=== PATIENT | male | born 1995 | race Caucasian/White ===

== ENCOUNTER 2019-03-20 08:41 | Emergency (ER) | payer SELFPAY ==
--- NOTE | 2019-03-20 09:02 | EDM.PDOC ---
ED HPI GENERAL MEDICAL PROBLEM - General Chief Complaint: Genitourinary Problem Stated Complaint: PAIN IN GROIN Time Seen by Provider: 03/20/19 09:02 Source of Information: Reports: Patient, RN, RN Notes Reviewed History Limitations: Reports: No Limitations - History of Present Illness INITIAL COMMENTS - FREE TEXT/NARRATIVE: Pt to ER with c/o right groin pain, right testicular pain. Patient states he woke up at 0100 with pain in the right groin and right testicle. Patient denies any urinary sx, fever or chills, blood in the urine. Denies hx of kidney stones or hernia. States last sexual intercourse was over 1 year ago, pt has no concerns for STI's. Patient denies any penile drainage. Admits to nausea. 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 Denies trauma to the area. Patient states he does still have his appendix. Pt c/o 1/10 at rest, and 8/10 with movement. Onset: Today, Sudden Right Groin Pain Score (Numeric/FACES): 7 - Related Data Allergies Allergy/AdvReac Type Severity Reaction Status Date / Time No Known Allergies Allergy Verified 03/20/19 08:48 Home Meds: Home Meds . [No Known Home Meds] 03/20/19 [History] Past Medical History - Past Health History Medical/Surgical History: Denies Medical/Surgical History HEENT History: Reports: None Cardiovascular History: Reports: None Respiratory History: Reports: None Gastrointestinal History: Reports: None Genitourinary History: Reports: None Musculoskeletal History: Reports: Other (See Below) Other Musculoskeletal History: right ankle and foot fracture Neurological History: Reports: None Psychiatric History: Reports: None Endocrine/Metabolic History: Reports: None Hematologic History: Reports: None Immunologic History: Reports: None Oncologic (Cancer) History: Reports: None Dermatologic History: Reports: None - Infectious Disease History Infectious Disease History: Reports: None - Past Surgical History Head Surgeries/Procedures: Reports: None Musculoskeletal Surgical History: Reports: Other (See Below) Other Musculoskeletal Surgeries/Procedures:: right ankle and foot surgery Social & Family History - Family History Family Medical History: Noncontributory - Tobacco Use Smoking Status *Q: Never Smoker Second Hand Smoke Exposure: No - Caffeine Use Caffeine Use: Reports: None - Recreational Drug Use Recreational Drug Use: No ED ROS GENERAL - Review of Systems Review Of Systems: ROS reveals no pertinent complaints other than HPI. ED EXAM, RENAL/ - Physical Exam Exam: See Below Exam Limited By: No Limitations General Appearance: Alert, WD/WN, Mild Distress Eye Exam: Bilateral Eye: EOMI, Normal Inspection Ears: Normal External Exam, Hearing Grossly Normal Nose: Normal Inspection Throat/Mouth: Normal Inspection, Normal Voice, No Airway Compromise Head: Atraumatic, Normocephalic Neck: Normal Inspection, Supple, Non-Tender, Full Range of Motion Respiratory/Chest: No Respiratory Distress, Lungs Clear, Normal Breath Sounds, No Accessory Muscle Use, Chest Non-Tender Cardiovascular: Normal Peripheral Pulses, Regular Rate, Rhythm, No Edema, No Gallop, No JVD, No Murmur, No Rub GI/Abdominal: Normal Bowel Sounds, Soft, Tender (RLQ) (Male) Exam: Cremasteric Reflex (decreased on right), Scrotal Swelling ( right side), Scrotum Tenderness (R), Testicular Tenderness (R). No: Hernia, Penile Lesions, Rash, Urethral Discharge Rectal (Males) Exam: Deferred Back Exam: Normal Inspection, Full Range of Motion, NT Extremities: Normal Inspection, Normal Range of Motion, Non-Tender, Normal Capillary Refill, No Pedal Edema Neurological: Alert, Oriented, CN II-XII Intact, Normal Cognition, Normal Gait, Normal Reflexes, No Motor/Sensory Deficits Psychiatric: Normal Affect, Normal Mood Skin Exam: Warm, Dry, Intact, Normal Color, No Rash Lymphatic: No Adenopathy Course - Vital Signs Last Recorded V/S: Last Vital Signs Temp 97.5 F 03/20/19 08:49 Pulse 88 03/20/19 08:49 Resp 18 03/20/19 08:49 BP 126/75 03/20/19 08:49 Pulse Ox 98 03/20/19 08:49 - Orders/Labs/Meds Orders: Active Orders 24 hr Category Date Time Status CHLAMYDIA AND GONORRHEA BY TMA Stat Lab 03/20/19 09:10 Received CULTURE URINE [RM] Stat Lab 03/20/19 09:10 Received Labs: Laboratory Tests 03/20/19 03/20/19 03/20/19 Range/Units 09:10 09:20 09:20 WBC 13.2 H (5.0-10.0) 10^3/uL RBC 5.78 (4.6-6.2) 10^6/uL Hgb 16.9 (14.0-18.0) g/dL Hct 50.2 (40.0-54.0) % MCV 86.9 (80-100) fL MCH 29.2 (27.0-34.0) pg MCHC 33.7 (33.0-35.0) g/dL Plt Count 169 (150-450) 10^3/uL Neut % (Auto) 80.8 H (42.2-75.2) % Lymph % (Auto) 9.6 L (20.5-50.1) % [place] % (Auto) 9.2 H (2-8) % Eos % (Auto) 0.2 L (1.0-3.0) % Baso % (Auto) 0.2 (0.0-1.0) % Sodium 137 (135-145) mmol/L Potassium 4.0 (3.6-5.0) mmol/L Chloride 100 L (101-111) mmol/L Carbon Dioxide 28.0 (21.0-31.0) mmol/L Anion Gap 13.0 BUN 17 (7-18) mg/dL Creatinine 1.5 H (0.6-1.3) mg/dL Est Cr Clr Drug Dosing 83.20 mL/min Estimated GFR (MDRD) 58 BUN/Creatinine Ratio 11.33 Glucose 106 H (74-105) mg/dL Calcium 9.2 (8.4-10.2) mg/dl Total Bilirubin 1.1 H (0.2-1.0) mg/dL AST 18 (10-42) IU/L ALT 22 (10-60) IU/L Alkaline Phosphatase 53 (42-121) IU/L Total Protein 7.7 (6.7-8.2) g/dl Albumin 4.1 (3.2-5.5) g/dl Globulin 3.6 Albumin/Globulin Ratio 1.14 Urine Color Dark yellow (YELLOW) Urine Appearance Slightly cloudy (CLEAR) Urine pH 6.0 (5.0-9.0) Ur Specific [place] 1.025 (1.005-1.030) Urine Protein Negative (NEGATIVE) Urine Glucose (UA) Negative (NEGATIVE) Urine Ketones Negative (NEGATIVE) Urine Occult Blood Trace-intact H (NEGATIVE) Urine Nitrite Negative (NEGATIVE) Urine Bilirubin Negative (NEGATIVE) Urine Urobilinogen 0.2 (0.2-1.0) mg/dL Ur Leukocyte Esterase Trace H (NEGATIVE) Urine RBC 10-20 H /HPF Urine WBC 75-100 H (0-5/HPF) /HPF Ur Epithelial Cells Few (NOT SEEN) /HPF Amorphous Sediment Occasional (NOT SEEN) /HPF Urine Bacteria Few (0-FEW/HPF) /HPF Urine Mucus Many H (NOT SEEN) /LPF Meds: Medications Discontinued Medications Generic Name Dose Route Start Last Admin Trade Name Freq PRN Reason Stop Dose Admin Ceftriaxone Sodium 250 mg/ 0 mg 03/20/19 11:41 03/20/19 12:01 Lidocaine HCl 0.9 ml IM 03/20/19 11:42 1 inj ONETIME ONE Administration - Radiology Interpretation Free Text/Narrative:: Scrotal ultrasound: Acute epididymitis (scrotum on the right) See rad report Departure - Departure Time of Disposition: 11:42 Disposition: Home, Self-Care 01 Condition: Fair Clinical Impression: Epididymitis - Discharge Information *PRESCRIPTION DRUG MONITORING PROGRAM REVIEWED*: No *COPY OF PRESCRIPTION DRUG MONITORING REPORT IN PATIENT CYNDEE: No Instructions: Epididymitis Forms: ED Department Discharge Additional Instructions: May use Ibuprofen (600-800mg) every 8 hours with food May use ice to the area as tolerated RX: Doxycycline Follow up with your primary care facility if no improvement - My Orders Last 24 Hours: My Active Orders 03/20/19 09:10 CHLAMYDIA AND GONORRHEA BY TMA Stat CULTURE URINE [RM] Stat - Assessment/Plan Last 24 Hours: My Active Orders 03/20/19 09:10 CHLAMYDIA AND GONORRHEA BY TMA Stat CULTURE URINE [RM] Stat
[2019-03-20] MEDS ORDERED: cefTRIAXone 250 MG, Lidocaine 1% 0.9 ML IM ONE ×2 (11:41)
--- NOTE | 2019-03-20 12:32 | US ---
Clinical history: 23-year-old male with painful right groin and scrotum with WBC of 13,200. Interpretation: Abnormal. 1. *Asymmetric increased blood flow enlarged epididymis on the right consistent with acute inflammation i.e. infection (epididymitis) 2. Ipsilateral hydrocele and several tiny epididymal cysts, on the right. 3. Symmetric normal-appearing testicles with good blood flow. No sign of testicular mass, torsion or infarct. Right testicle measures 4.1 cm L x 2.7 cm W x 1.9 cm AP diameter. Left testicle measures 4.2 cm L x 3.2 cm W x 2.0 cm AP diameter. 4. Tiny epididymal cyst, on the asymptomatic left. No hydrocele scrotum on the left. CONCLUSION: Acute epididymitis (scrotum on the right).
== END 2019-03-20 12:11 | disposition home or self-care (01) ==
LOC: DL.ED 08:41
DX: N45.1 Epididymitis (principal)
CPT/HCPCS: 36415; 76870; 80053; 81001; 85025; 87086; 87491; 87591; 96372; 99283; J0696; J2001